=== PATIENT | female | born 1985 | race Hispanic/Latino ===

== ENCOUNTER 2017-12-28 10:10 | Emergency (ER) | payer OTHER ==
[~2017-12-28] VITALS: Ht 147.3 cm; Wt 68.0 kg
[~2017-12-28 10:10] MED LIST: ALEVE220 M2 PO; LORTAB 7.57.5 MG PO; THYROID MED; [UNRECOGNIZED DRUG - OTHER]
[2017-12-28] MEDS ORDERED: LEVOTHYROXIN75 MCG PO (10:20)
[2017-12-28] MEDS ORDERED: KEFLEX500 MG PO (10:32)
[2017-12-28 10:33] VITALS: BP 150/87
== END 2017-12-28 10:33 | disposition home or self-care (01) | DRG 605 ==
LOC: ED 10:10
DX: S70.11XA Contusion of right thigh, initial encounter (principal); X58.XXXA Exposure to other specified factors, initial encounter